=== PATIENT | female | born 1960 | race African-American/Black ===

== ENCOUNTER → 2020-12-15 | Outpatient (CLI) | payer MEDICARE, MEDICAID ==
[~2020-12-15] MED LIST: ASPI-1497 MT; CARI250T MT; FERR325T23 MT; FOLI-43 MT; FURO20TA4 MT; HYDR-4009 MT; HYDR200T80 MT; LISI40TA13 MT; P20 MT; VERA240T32 MT
== END | disposition home or self-care (01) ==
LOC: RAD 11:34
PROVIDERS: ATTEND Internal Medicine Clinical Cardiac Electrophysiology
DX: I50.9 Heart failure, unspecified (principal); I25.5 Ischemic cardiomyopathy
CPT/HCPCS: 71045

== ENCOUNTER 2023-04-14 04:44 | Inpatient (IN) | payer MEDICARE, MEDICAID ==
[~2023-04-14] VITALS: Ht 170.2 cm; Wt 98.7 kg
[~2023-04-14 04:44] MED LIST changes: -CARI250T MT; +CARI350T28 MT; +COR3 PO; +HYDR25TA78 PO; +POLY17PO3 MT; -VERA240T32 MT; +VERA240T94 MT
[2023-04-14 05:28] LABS: BASOPHILS % 0.7 % (0.0-2.0); DIFFERENTIAL COMMENT 0; EOSINOPHILS % 4.4 % (0.0-5.0); HEMATOCRIT. 31.9 % (36.0-48.0); HEMOGLOBIN. 10.1 g/dL (12.0-16.0); LYMPHOCYTES % 30.4 % (20.0-50.0); MEAN CORPUSCULAR HEMOGLOBIN 24.9 pg (28.0-32.0); MEAN CORPUSCULAR HGB CONC 31.6 g/dL (31.0-37.0); MEAN PLATELET VOLUME 9.8 fl (7.4-10.4); NEUTROPHILS % 54.5 % (40.0-76.0); PLATELET 130 x1000/uL (130-400); RED BLOOD CELL COUNT 4.04 mill/uL (4.2-5.4); RED CELL DISTRIBUTION WIDTH 16.7 % (11.6-14.6); WHITE BLOOD COUNT 4.4 x1000/uL (4.5-11.0)
[2023-04-14 05:49] LABS: ALANINE AMINOTRANSFERASE < 7 IU/L (10-49); ALBUMIN 4.6 g/dL (3.2-4.8); ASPARTATE AMINOTRANSFERASE 15 IU/L (<34); BILIRUBIN TOTAL 0.7 mg/dL (0.1-1.0); CALCIUM 9.8 mg/dL (8.7-10.4); CARBON DIOXIDE 21 mEq/L (21-32); CHLORIDE 111 mEq/L (98-107); CREATININE 2.4 mg/dL (0.6-1.0); GLUCOSE 100 mg/dL (70-105); POTASSIUM 3.9 mEq/L (3.5-5.1); PROTEIN TOTAL 7.7 g/dL (6.0-8.3); SODIUM 139 mEq/L (136-145); UREA NITROGEN BLOOD 34 mg/dL (9-23)
[2023-04-14 06:02] LABS: CLARITY URINE TURBID (CLEAR); COLOR URINE YELLOW (YELLOW); GLUCOSE URINE NEGATIVE (NEGATIVE); KETONES URINE NEGATIVE (NEGATIVE); LEUKOCYTE ESTERASE URINE 2+ (NEGATIVE); NITRITE URINE POSITIVE (NEGATIVE); OCCULT BLOOD URINE TRACE (NEGATIVE); PH URINE 5.5 (4.5-8.0); PROTEIN URINE 2+ (NEGATIVE); SPECIFIC GRAVITY URINE 1.013 (1.005-1.030); UROBILINOGEN URINE 0.2 E.U./dL (0.2-1.0)
[2023-04-14 06:02] LABS: TROPONIN I HIGH SENSITIVITY 57 ng/L (3.0-34)
[2023-04-14 08:04] LABS: WBC URINE 15-25 /hpf (0-2)
[2023-04-14 08:05] LABS: BACTERIA URINE 4+; RBC URINE 0-2 /hpf (0-2)
[2023-04-14] MEDS: SODIUM CHLORIDE 0.9% 1,000 ML IV ONE (08:52)
[2023-04-14] MEDS: METOCLOPRAMIDE HCL 10MG/2ML VIAL IV ONE (09:05)
[2023-04-14] MEDS: KETOROLAC 30MG/ML VIAL IV ONE (09:05)
[2023-04-14] MEDS: MORPHINE SULFATE 4 MG/ML CPJ (NOT FOR IM USE) IV STA (09:05)
[2023-04-14] MEDS: MORPHINE SULFATE 4 MG/ML CPJ (NOT FOR IM USE) IV ONE (09:05)
[2023-04-14 13:03] LABS: TROPONIN I HIGH SENSITIVITY 55 ng/L (3.0-34)
[2023-04-14] MEDS ORDERED: IPRATROPIUM/ALBUTEROL 0.5-3(2.5)MG/3ML NEB HHN PRN (13:45)
[2023-04-14] MEDS ORDERED: MAGNESIUM/ALUMINUM HYDROXIDE/SIMETHICONE 30ML UDC PO PRN (13:45)
[2023-04-14] MEDS ORDERED: GUAIFENESIN 200MG/10ML SUGAR FREE UDC PO PRN (13:45)
[2023-04-14] MEDS ORDERED: ONDANSETRON HCL 4MG/2ML INJ IV PRN (13:45)
[2023-04-14] MEDS ORDERED: ACETAMINOPHEN 325MG TABLET PO PRN ×2 (13:45)
[2023-04-14] MEDS ORDERED: DOCUSATE SODIUM 100MG CAPSULE PO PRN (13:45)
[2023-04-14] MEDS ORDERED: CARISOPRODOL 350 MG TABLET PO PRN (14:45)
[2023-04-14] MEDS: ENOXAPARIN 40MG/0.4ML SYR SUBCUT SCH (14:55)
[2023-04-14] MEDS: SODIUM CHLORIDE 0.9% 1,000 ML IV SCH (14:55)
[2023-04-14] MEDS ORDERED: NALOXONE HCL 0.4MG/ML VIAL IV PRN (15:00)
[2023-04-14] MEDS: CEFTRIAXONE 1GM/50ML 50 ML IV SCH (15:00)
[2023-04-14] MEDS: CLONIDINE 0.1MG TABLET PO PRN (15:28)
[2023-04-14] MEDS: HYDROXYCHLOROQUINE SULFATE 200MG TABLET PO SCH (17:00)
[2023-04-14 18:38] VITALS: BP 157/59; PULSE 69; RESP 20; TEMP 98
[2023-04-14 20:00] VITALS: BP 147/54; PULSE 60; RESP 18; TEMP 97.8
[2023-04-14] MEDS: ATORVASTATIN CALCIUM 20MG TABLET PO SCH (21:14)
[2023-04-14] MEDS: HYDRALAZINE HCL 25MG TABLET PO SCH (21:14)
[2023-04-14] MEDS: CARVEDILOL 3.125 MG TABLET PO SCH (21:15)
[2023-04-14] MEDS: HYDROCODONE/ACETAMINOPHEN 10/325MG TABLET PO PRN (21:23)
[2023-04-15] VITALS: BP 146/59; PULSE 60; RESP 18; TEMP 97
[2023-04-15] MEDS: METHYLPREDNISOLONE SOD SUCC 40MG VIAL IV SCH (01:00)
[2023-04-15 04:00] VITALS: BP 147/65; PULSE 60; RESP 20; TEMP 97
[2023-04-15] MEDS: NITROGLYCERIN OINT 1GM/INCH UDPKT TD SCH (06:00)
[2023-04-15 06:13] LABS: BASOPHILS % 0.7 % (0.0-2.0); DIFFERENTIAL COMMENT 0; EOSINOPHILS % 6.9 % (0.0-5.0); HEMATOCRIT. 28.2 % (36.0-48.0); HEMOGLOBIN. 9.1 g/dL (12.0-16.0); LYMPHOCYTES % 23.4 % (20.0-50.0); MEAN CORPUSCULAR HEMOGLOBIN 25.3 pg (28.0-32.0); MEAN CORPUSCULAR HGB CONC 32.2 g/dL (31.0-37.0); MEAN CORPUSCULAR VOLUME 78.5 fL (81.0-99.0); MONOCYTES % 12.2 % (2.0-8.0); NEUTROPHILS % 56.8 % (40.0-76.0); PLATELET 98 x1000/uL (130-400); RED CELL DISTRIBUTION WIDTH 16.6 % (11.6-14.6); WHITE BLOOD COUNT 3.1 x1000/uL (4.5-11.0)
[2023-04-15 06:33] LABS: ALANINE AMINOTRANSFERASE < 7 IU/L (10-49); ALBUMIN 3.7 g/dL (3.2-4.8); ASPARTATE AMINOTRANSFERASE 15 IU/L (<34); BILIRUBIN TOTAL 0.6 mg/dL (0.1-1.0); CALCIUM 9.2 mg/dL (8.7-10.4); CARBON DIOXIDE 23 mEq/L (21-32); CHLORIDE 112 mEq/L (98-107); CHOLESTEROL 122 mg/dL (<200); CREATININE 2.5 mg/dL (0.6-1.0); GLUCOSE 84 mg/dL (70-105); HDL CHOLESTEROL 39 mg/dL (>65); LDL CHOLESTEROL 64 mg/dL (5-100); POTASSIUM 4.6 mEq/L (3.5-5.1); PROTEIN TOTAL 6.2 g/dL (6.0-8.3); SODIUM 141 mEq/L (136-145); T4 FREE 1.22 ng/dL (0.89-1.76); THYROID STIMULATING HORMONE 2.22 uIU/mL (0.55-4.78); TRIGLYCERIDE 68 mg/dL (0-150); UREA NITROGEN BLOOD 36 mg/dL (9-23)
[2023-04-15 06:40] LABS: IRON 50 ug/dL (50-170); PHOSPHORUS 3.5 mg/dL (2.5-4.9); TOTAL IRON BINDING CAPACITY 215 ug/dl (250-425)
[2023-04-15 07:52] LABS: TROPONIN I HIGH SENSITIVITY 51 ng/L (3.0-34)
[2023-04-15 08:00] VITALS: BP 114/60; PULSE 59; RESP 20; TEMP 97
[2023-04-15] MEDS ORDERED: PREDNISONE 20MG TABLET PO SCH (09:00)
[2023-04-15] MEDS ORDERED: VERAPAMIL HCL 120MG TABLET PO SCH (09:00)
[2023-04-15] MEDS: METHOTREXATE SODIUM 2 . 5MG TABLET PO SCH ×3 (09:00→23:09)
[2023-04-15] MEDS: PREGABALIN 75MG CAPSULE PO SCH (10:07)
[2023-04-15] MEDS: FOLIC ACID 1MG TABLET PO SCH (10:08)
[2023-04-15] MEDS: FUROSEMIDE 20MG TABLET PO SCH (10:09)
[2023-04-15] MEDS: ASPIRIN 81MG EC TABLET PO SCH (10:09)
[2023-04-15] MEDS: BUPROPION HCL 150MG SR TABLET PO SCH (10:09)
[2023-04-15 12:00] VITALS: BP 116/76; PULSE 62; RESP 20; TEMP 97.2
[2023-04-15 12:47] LABS: CREATINE KINASE 31 IU/L (34-145)
[2023-04-15 16:00] VITALS: BP 152/62; PULSE 60; RESP 20; TEMP 97.6
[2023-04-15] MEDS: METHYLPREDNISOLONE SOD SUCC 40MG/ML (ACT-O-VIAL) ONE (16:12)
[2023-04-15 20:00] VITALS: BP 127/59; PULSE 68; RESP 20; TEMP 97
[2023-04-15] MEDS: FAMOTIDINE 20MG/2ML VIAL IV SCH (20:58)
[2023-04-16] MEDS: METHYLPREDNISOLONE SOD SUCC 40MG/ML (ACT-O-VIAL) IV SCH ×3 (00:36→11:00)
[2023-04-16 04:00] VITALS: BP 125/65; PULSE 65; RESP 20; TEMP 97.6
[2023-04-16 07:17] LABS: HEMATOCRIT 28.4 % (36.0-48.0); HEMOGLOBIN 8.9 g/dL (12.0-16.0); MEAN CORPUSCULAR HEMOGLOBIN 24.7 pg (28.0-32.0); MEAN CORPUSCULAR HGB CONC 31.3 g/dL (31.0-37.0); MEAN CORPUSCULAR VOLUME 78.9 fL (81.0-99.0); PLATELET 108 x1000/uL (130-400); RED CELL DISTRIBUTION WIDTH 17.3 % (11.6-14.6); WHITE BLOOD COUNT 4.8 x1000/uL (4.5-11.0)
[2023-04-16 07:38] LABS: CALCIUM 8.9 mg/dL (8.7-10.4); CREATININE 2.4 mg/dL (0.6-1.0); POTASSIUM 5.2 mEq/L (3.5-5.1); URIC ACID 7.7 mg/dL (3.1-7.8)
[2023-04-16 08:00] VITALS: BP 132/70; PULSE 69; RESP 20; TEMP 97.7
[2023-04-16 08:54] LABS: ERYTHROCYTE SEDIMENTATION RATE 78 mm/hr (0-30)
[2023-04-16] MEDS: BUPROPION HCL 150MG SR TABLET PO SCH (09:00)
[2023-04-16 09:10] LABS: COMPLEMENT C3 103 mg/dL (82-167); COMPLEMENT C4 19 mg/dL (12-38)
[2023-04-16 10:07] LABS: ANTI-NUCLEAR ANTIBODIES DIRECT Positive (Negative)
[2023-04-16 10:15] VITALS: BP 132/70; PULSE 69; TEMP 97.7; O2SAT 98
[2023-04-16 12:00] VITALS: BP 157/81; PULSE 63; RESP 63; TEMP 97.5
[2023-04-16] MEDS ORDERED: SULFASALAZINE 500MG TABLET PO SCH (12:00)
[2023-04-17 06:32] LABS: G6PD RBC 3.56 x10E6/uL (3.77-5.28)
[2023-04-17 08:09] LABS: ANTI-JO 1 ABS <0.2 AI (0.0-0.9); RNP ANTIBODY > 8.0 AI (0.0-0.9); SMITH ANTIBODY 1.4 AI (0.0-0.9)
[2023-04-18 19:09] LABS: ANTI-MYELOPEROXIDASE AB < 0.2 units (0.0-0.9); ANTI-PROTEINASE 3 ABS < 0.2 units (0.0-0.9); GLOMERULAR BASEMENT MEMB AB < 0 units (0.0-0.9)
[2023-04-19 09:11] LABS: ALDOLASE 3.9 U/L (3.3-10.3); ANGIOTENSION CONVERTING ENZYME 76 U/L (14-82)
[2023-04-22 10:11] LABS: G6PD QUANTITATIVE 402 (127-427)
[2023-04-23 13:07] LABS: ATYPICAL P-ANCA <1:20 titer (Neg:<1:20); CYTOPLASMIC C-ANCA <1:20 titer (Neg:<1:20); PERINUCLEAR P-ANCA <1:20 titer (Neg:<1:20)
== END 2023-04-16 12:45 | disposition home health service (06) | DRG 545 ==
LOC: ER 04:44 → EDBEDREQ 09:00 → 5WST 09:52 → EDBEDREQ 09:53 → EDBEDREQTM 09:53 → 8WST 17:06
PROVIDERS: ADMIT Internal Medicine; ATTEND Internal Medicine
DX: M32.9 Systemic lupus erythematosus, unspecified (principal); I21.A1 Myocardial infarction type 2; I50.23 Acute on chronic systolic (congestive) heart failure; N17.9 Acute kidney failure, unspecified; N39.0 Urinary tract infection, site not specified; I16.9 Hypertensive crisis, unspecified; I13.0 Hypertensive heart and chronic kidney disease with heart failure and stage 1 through stage 4 chronic kidney disease, or unspecified chronic kidney disease; N18.4 Chronic kidney disease, stage 4 (severe); D61.818 Other pancytopenia; M79.7 Fibromyalgia; I25.10 Atherosclerotic heart disease of native coronary artery without angina pectoris; I34.0 Nonrheumatic mitral (valve) insufficiency; I27.21 Secondary pulmonary arterial hypertension; D50.9 Iron deficiency anemia, unspecified; I25.5 Ischemic cardiomyopathy; I73.00 Raynaud's syndrome without gangrene; T37.8X5A Adverse effect of other specified systemic anti-infectives and antiparasitics, initial encounter; Z95.810 Presence of automatic (implantable) cardiac defibrillator; Z95.5 Presence of coronary angioplasty implant and graft; Z90.710 Acquired absence of both cervix and uterus; Z88.0 Allergy status to penicillin; Z79.899 Other long term (current) drug therapy; Z79.82 Long term (current) use of aspirin; Y92.89 Other specified places as the place of occurrence of the external cause
CPT/HCPCS: 36415; 71045; 76770; 80048; 80053; 80061; 81003; 82085; 82164; 82550; 82728; 82955; 82977; 83036; 83516; 83520; 83540; 83550; 83605; 83735; 84100; 84145; 84439; 84443; 84484; 84550; 85025; 85027; 85041; 85651; 86038; 86160; 86225; 86235; 86256; 86332; 86431; 86880; 93005; 93306; 93970; 97161; 97166; 99285; J0696; J1650; J1885; J2270; J2765; J2920; J3490; J7030; J8610

== ENCOUNTER 2023-10-13 23:04 | Inpatient (IN) | payer MEDICARE, MEDICAID ==
[~2023-10-13] VITALS: Ht 170.2 cm; Wt 101.2 kg
[~2023-10-13 23:04] MED LIST changes: +AMLO2.5T45 PO; -FOLI-43 MT; +FOLI-43 PO; -FURO20TA4 MT; +FURO40TA5 PO; -HYDR-4009 MT; +HYDR-4009 PO; +HYDR200T35 PO; -HYDR200T80 MT; +LOSA-412 PO; -P20 MT; -POLY17PO3 MT; +PREG75CA PO; -VERA240T94 MT
[2023-10-13 23:35] LABS: BASOPHILS % 0.9 % (0.0-2.0); EOSINOPHILS % 6.6 % (0.0-5.0); LYMPHOCYTES % 28.5 % (20.0-50.0); MEAN CORPUSCULAR HEMOGLOBIN 28.4 pg (28.0-32.0); MEAN CORPUSCULAR HGB CONC 33.8 g/dL (31.0-37.0); MEAN PLATELET VOLUME 8.9 fl (7.4-10.4); MONOCYTES % 11.8 % (2.0-8.0); NEUTROPHILS % 52.2 % (40.0-76.0); PLATELET 155 x1000/uL (130-400); RED BLOOD CELL COUNT 2.15 mill/uL (4.2-5.4)
[2023-10-13 23:42] LABS: CHLORIDE 113 mEq/L (98-107); POTASSIUM 4.1 mEq/L (3.5-5.1); SODIUM 139 mEq/L (136-145)
[2023-10-13 23:43] LABS: CARBON DIOXIDE 19 mEq/L (21-32)
[2023-10-13 23:44] LABS: CALCIUM 9.7 mg/dL (8.7-10.4)
[2023-10-13 23:48] LABS: CREATININE 3.1 mg/dL (0.6-1.0); GLUCOSE 95 mg/dL (70-105); UREA NITROGEN BLOOD 33 mg/dL (9-23)
[2023-10-13 23:59] LABS: DIFFERENTIAL COMMENT 1; HEMOGLOBIN. 6.1 g/dL (12.0-16.0)
[2023-10-14 00:05] LABS: TROPONIN I HIGH SENSITIVITY 132 ng/L (3.0-34)
[2023-10-14] MEDS: MORPHINE SULFATE 4 MG/ML INJ (FOR IV/IM USE) IV ONE (01:21)
[2023-10-14] MEDS: ASPIRIN 81MG TABLET PO ONE (01:21)
[2023-10-14 01:55] LABS: TROPONIN I HIGH SENSITIVITY 136 ng/L (3.0-34)
[2023-10-14] MEDS ORDERED: ACETAMINOPHEN 325MG TABLET PO PRN (06:15)
[2023-10-14] MEDS ORDERED: MAGNESIUM/ALUMINUM HYDROXIDE/SIMETHICONE 30ML UDC PO PRN (06:15)
[2023-10-14] MEDS ORDERED: IPRATROPIUM/ALBUTEROL 0.5-3(2.5)MG/3ML NEB NEB PRN (06:15)
[2023-10-14] MEDS ORDERED: GUAIFENESIN 200MG/10ML SUGAR FREE UDC PO PRN (06:15)
[2023-10-14] MEDS ORDERED: DOCUSATE SODIUM 100MG CAPSULE PO PRN (06:15)
[2023-10-14 08:17] VITALS: BP 165/65; PULSE 76; RESP 20; TEMP 36.5848
[2023-10-14] MEDS: CARVEDILOL 3.125 MG TABLET PO SCH (09:00)
[2023-10-14] MEDS ORDERED: FAMOTIDINE 20MG TABLET PO SCH (09:00)
[2023-10-14] MEDS ORDERED: LIDOCAINE HCL 1% 10 MG/ML 10ML VIAL ONE (10:59)
[2023-10-14 11:57] VITALS: BP 125/57; PULSE 60; RESP 20; TEMP 36.33624; O2SAT 100
[2023-10-14 15:50] VITALS: BP 149/55; PULSE 67; RESP 18; TEMP 36.83628; O2SAT 96
[2023-10-14] MEDS: NITROGLYCERIN 0.4MG TABLET SL SL PRN (16:37)
[2023-10-14 16:40] LABS: CREATINE KINASE MB FRACTION 0.6 ng/mL (0.5-3.6)
[2023-10-14 20:00] VITALS: BP 146/116; PULSE 78; RESP 20; TEMP 36.22512; O2SAT 98
[2023-10-14] MEDS: HYDROXYCHLOROQUINE SULFATE 200MG TABLET PO SCH (20:43)
[2023-10-14] MEDS: CLONIDINE 0.1MG TABLET PO PRN (21:03)
[2023-10-14] MEDS: AZATHIOPRINE 50MG TABLET PO SCH (21:03)
[2023-10-14] MEDS: ACETAMINOPHEN 325MG TABLET PO PRN (21:30)
[2023-10-14] MEDS: ZOLPIDEM TARTRATE 5MG TABLET PO PRN (21:33)
[2023-10-15] VITALS (14 sets, daily range): BP systolic 104–175; BP diastolic 41–71; PULSE 59–73; RESP 18–20; TEMP 36.28068–36.6696; O2SAT 96–100
[2023-10-15 00:50] LABS: CREATINE KINASE MB FRACTION < 0.5 ng/mL (0.5-3.6)
[2023-10-15 00:56] LABS: CREATINE KINASE 39 IU/L (34-145)
[2023-10-15 01:08] LABS: TROPONIN I HIGH SENSITIVITY 116 ng/L (3.0-34)
[2023-10-15 10:14] LABS: CHLORIDE 115 mEq/L (98-107); POTASSIUM 4.5 mEq/L (3.5-5.1); SODIUM 141 mEq/L (136-145)
[2023-10-15 10:15] LABS: CALCIUM 9.4 mg/dL (8.7-10.4); CARBON DIOXIDE 20 mEq/L (21-32)
[2023-10-15 10:16] LABS: BASOPHILS % 1.1 % (0.0-2.0); DIFFERENTIAL COMMENT 0; EOSINOPHILS % 5.7 % (0.0-5.0); LYMPHOCYTES % 27.3 % (20.0-50.0); MEAN CORPUSCULAR HEMOGLOBIN 27.9 pg (28.0-32.0); MEAN CORPUSCULAR HGB CONC 33.9 g/dL (31.0-37.0); MEAN CORPUSCULAR VOLUME 82.2 fL (81.0-99.0); MEAN PLATELET VOLUME 9.2 fl (7.4-10.4); MONOCYTES % 8.2 % (2.0-8.0); NEUTROPHILS % 57.7 % (40.0-76.0); PLATELET 129 x1000/uL (130-400); RED BLOOD CELL COUNT 2.43 mill/uL (4.2-5.4); RED CELL DISTRIBUTION WIDTH 16.4 % (11.6-14.6); WHITE BLOOD COUNT 4.3 x1000/uL (4.5-11.0)
[2023-10-15 10:20] LABS: CREATININE 2.8 mg/dL (0.6-1.0); GLUCOSE 91 mg/dL (70-105)
[2023-10-15 10:22] LABS: ALANINE AMINOTRANSFERASE < 7 IU/L (10-49); ALBUMIN 3.6 g/dL (3.2-4.8); ASPARTATE AMINOTRANSFERASE 11 IU/L (<34); PHOSPHORUS 3.5 mg/dL (2.5-4.9); UREA NITROGEN BLOOD 31 mg/dL (9-23)
[2023-10-15 10:23] LABS: BILIRUBIN TOTAL 1.3 mg/dL (0.1-1.0)
[2023-10-15 10:24] LABS: HEMATOCRIT. 19.9 % (36.0-48.0); HEMOGLOBIN. 6.8 g/dL (12.0-16.0)
[2023-10-16] VITALS (7 sets, daily range): BP systolic 132–158; BP diastolic 49–71; PULSE 58–60; RESP 18–20; TEMP 36.22512–36.44736; O2SAT 98–100
[2023-10-16 01:12] LABS: HEMATOCRIT 24.8 % (36.0-48.0); HEMOGLOBIN 8.3 g/dL (12.0-16.0)
[2023-10-16] MEDS: ONDANSETRON HCL 4MG/2ML INJ IV PRN (01:25)
[2023-10-16 07:36] LABS: CALCIUM 9.5 mg/dL (8.7-10.4); POTASSIUM 4.5 mEq/L (3.5-5.1)
[2023-10-16 07:42] LABS: CREATININE 2.8 mg/dL (0.6-1.0)
[2023-10-16 08:01] LABS: BASOPHILS % 0.6 % (0.0-2.0); EOSINOPHILS % 7.9 % (0.0-5.0); HEMATOCRIT. 24.8 % (36.0-48.0); HEMOGLOBIN. 8.3 g/dL (12.0-16.0); LYMPHOCYTES % 28.3 % (20.0-50.0); MEAN CORPUSCULAR HEMOGLOBIN 28.4 pg (28.0-32.0); MEAN CORPUSCULAR HGB CONC 33.3 g/dL (31.0-37.0); MEAN CORPUSCULAR VOLUME 85.1 fL (81.0-99.0); MEAN PLATELET VOLUME 9.6 fl (7.4-10.4); MONOCYTES % 11.7 % (2.0-8.0); NEUTROPHILS % 51.5 % (40.0-76.0); PLATELET 118 x1000/uL (130-400); RED BLOOD CELL COUNT 2.92 mill/uL (4.2-5.4); RED CELL DISTRIBUTION WIDTH 17.5 % (11.6-14.6); WHITE BLOOD COUNT 3.2 x1000/uL (4.5-11.0)
[2023-10-16] MEDS: DULOXETINE HCL 30MG DR CAPSULE PO SCH (15:00)
[2023-10-16] MEDS ORDERED: HYDROCODONE/ACETAMINOPHEN 5/325MG TABLET PO PRN (15:00)
[2023-10-16] MEDS: FOLIC ACID 1MG TABLET PO SCH (15:00)
[2023-10-16] MEDS ORDERED: NALOXONE HCL 0.4MG/ML VIAL IV PRN (15:15)
[2023-10-16] MEDS: HYDROCODONE/ACETAMINOPHEN 5/325MG TABLET PO NR (17:38)
[2023-10-16] MEDS: FERROUS SULFATE 325MG TABLET PO SCH (18:10)
[2023-10-16] MEDS ORDERED: AMLODIPINE 5MG TABLET PO SCH (21:00)
[2023-10-16] MEDS ORDERED: CARVEDILOL 12.5MG TABLET PO SCH (21:00)
== END 2023-10-16 19:00 | disposition home or self-care (01) | DRG 811 ==
LOC: ER 23:51 → 7WST 10-14 03:59
PROVIDERS: ADMIT Internal Medicine; ATTEND Internal Medicine
PROC: 02HV33Z Insertion of Infusion Device into Superior Vena Cava, Percutaneous Approach (ICD-10-PCS; principal; 2023-10-14)
PROC: B548ZZA Ultrasonography of Superior Vena Cava, Guidance (ICD-10-PCS; 2023-10-14)
PROC: B5181ZA Fluoroscopy of Superior Vena Cava using Low Osmolar Contrast, Guidance (ICD-10-PCS; 2023-10-14)
PROC: 30233N1 Transfusion of Nonautologous Red Blood Cells into Peripheral Vein, Percutaneous Approach (ICD-10-PCS; 2023-10-14)
DX: D64.9 Anemia, unspecified (principal); N17.0 Acute kidney failure with tubular necrosis; I42.9 Cardiomyopathy, unspecified; M32.9 Systemic lupus erythematosus, unspecified; G47.33 Obstructive sleep apnea (adult) (pediatric); I12.9 Hypertensive chronic kidney disease with stage 1 through stage 4 chronic kidney disease, or unspecified chronic kidney disease; I25.10 Atherosclerotic heart disease of native coronary artery without angina pectoris; R79.89 Other specified abnormal findings of blood chemistry; I49.5 Sick sinus syndrome; N18.9 Chronic kidney disease, unspecified; Z87.440 Personal history of urinary (tract) infections; Z95.0 Presence of cardiac pacemaker; Z95.5 Presence of coronary angioplasty implant and graft; Z88.8 Allergy status to other drugs, medicaments and biological substances; Z88.0 Allergy status to penicillin; Z68.34 Body mass index [BMI] 34.0-34.9, adult
CPT/HCPCS: 36415; 36573; 71045; 80048; 80053; 82550; 82553; 83735; 83880; 84100; 84484; 85014; 85018; 85025; 85651; 86850; 86870; 86900; 86920; 93005; 93306; 93970; 99285; C1725; J2270; J2405; J3490; J7500; P9016

== ENCOUNTER 2023-11-28 16:44 | Emergency (ER) | payer MEDICARE, MEDICAID ==
[~2023-11-28] VITALS: Ht 170.2 cm; Wt 99.8 kg
[~2023-11-28 16:44] MED LIST changes: -ASPI-1497 MT; +P20 PO
[2023-11-28 16:45] VITALS: BP 187/85; PULSE 81; RESP 16; TEMP 98.3; O2SAT 100
[2023-11-28 17:22] LABS: BASOPHILS % 0.3 % (0.0-2.0); EOSINOPHILS % 2.3 % (0.0-5.0); HEMOGLOBIN. 7.1 g/dL (12.0-16.0); LYMPHOCYTES % 20.9 % (20.0-50.0); MEAN CORPUSCULAR HEMOGLOBIN 29.9 pg (28.0-32.0); MEAN CORPUSCULAR HGB CONC 33.9 g/dL (31.0-37.0); MEAN CORPUSCULAR VOLUME 88.2 fL (81.0-99.0); MEAN PLATELET VOLUME 8.8 fl (7.4-10.4); MONOCYTES % 10.3 % (2.0-8.0); NEUTROPHILS % 66.2 % (40.0-76.0); PLATELET 170 x1000/uL (130-400); RED BLOOD CELL COUNT 2.38 mill/uL (4.2-5.4); RED CELL DISTRIBUTION WIDTH 16.2 % (11.6-14.6); WHITE BLOOD COUNT 6.9 x1000/uL (4.5-11.0)
[2023-11-28 17:32] LABS: DIFFERENTIAL COMMENT 1
[2023-11-28 17:34] LABS: POTASSIUM 3.6 mEq/L (3.5-5.1)
[2023-11-28 17:35] LABS: CALCIUM 9.8 mg/dL (8.7-10.4)
[2023-11-28 17:40] LABS: CREATININE 2.9 mg/dL (0.6-1.0)
== END 2023-11-28 18:59 | disposition left against medical advice (07) ==
LOC: ER 16:44
DX: D58.2 Other hemoglobinopathies (principal); Z53.21 Procedure and treatment not carried out due to patient leaving prior to being seen by health care provider
CPT/HCPCS: 36415; 80048; 85025

== ENCOUNTER 2023-12-04 15:13 | Inpatient (IN) | payer MEDICARE, MEDICAID ==
[~2023-12-04] VITALS: Ht 170.2 cm; Wt 94.9 kg
[2023-12-04 15:21] VITALS: O2SAT 98
[2023-12-04 16:19] LABS: MEAN CORPUSCULAR HEMOGLOBIN 31.7 pg (28.0-32.0); MEAN CORPUSCULAR HGB CONC 34.1 g/dL (31.0-37.0); MEAN CORPUSCULAR VOLUME 93.1 fL (81.0-99.0); MEAN PLATELET VOLUME 9.2 fl (7.4-10.4); PLATELET 153 x1000/uL (130-400); RED BLOOD CELL COUNT 1.81 mill/uL (4.2-5.4); WHITE BLOOD COUNT 4.7 x1000/uL (4.5-11.0)
[2023-12-04 16:23] LABS: HEMOGLOBIN. 5.7 g/dL (12.0-16.0)
[2023-12-04 16:24] LABS: DIFFERENTIAL COMMENT 1; HEMATOCRIT. 16.8 % (36.0-48.0)
[2023-12-04 16:25] LABS: POTASSIUM 4.1 mEq/L (3.5-5.1)
[2023-12-04 16:27] LABS: CALCIUM 9.4 mg/dL (8.7-10.4)
[2023-12-04 16:31] LABS: CREATININE 2.9 mg/dL (0.6-1.0)
[2023-12-04] MEDS ORDERED: SODIUM CHLORIDE 0.9% 1,000 ML IV ONE (16:45)
[2023-12-04 17:02] LABS: ANISOCYTOSIS 1+; PLATELET ESTIMATE NORMAL
[2023-12-04 17:36] LABS: INR 0.9; PARTIAL THROMBOPLASTIN TIME 21.7 sec (23.4-31.0); PROTHROMBIN TIME 10.1 sec (9.6-11.0)
[2023-12-04 17:54] LABS: TROPONIN I HIGH SENSITIVITY 97 ng/L (3.0-34)
[2023-12-04] MEDS ORDERED: ONDANSETRON HCL 4MG/2ML INJ IV PRN (20:00)
[2023-12-04] MEDS ORDERED: GUAIFENESIN 200MG/10ML SUGAR FREE UDC PO PRN (20:00)
[2023-12-04] MEDS ORDERED: KETOROLAC 15MG/ML VIAL IV PRN (20:00)
[2023-12-04] MEDS ORDERED: MAGNESIUM/ALUMINUM HYDROXIDE/SIMETHICONE 30ML UDC PO PRN (20:00)
[2023-12-04] MEDS ORDERED: ACETAMINOPHEN 325MG TABLET PO PRN ×2 (20:00)
[2023-12-04] MEDS ORDERED: ENOXAPARIN 40MG/0.4ML SYR SUBCUT SCH (20:00)
[2023-12-04] MEDS ORDERED: DOCUSATE SODIUM 100MG CAPSULE PO PRN (20:00)
[2023-12-04] MEDS ORDERED: NITROGLYCERIN 0.4MG TABLET SL SL PRN (20:00)
[2023-12-04] MEDS ORDERED: IPRATROPIUM/ALBUTEROL 0.5-3(2.5)MG/3ML NEB NEB PRN (20:00)
[2023-12-04] MEDS ORDERED: AMLODIPINE 5MG TABLET PO NR (20:15)
[2023-12-04] MEDS ORDERED: ZOLPIDEM TARTRATE 5MG TABLET PO PRN (21:00)
[2023-12-04 22:18] LABS: T4 FREE 1.03 ng/dL (0.89-1.76); THYROID STIMULATING HORMONE 0.93 uIU/mL (0.55-4.78)
[2023-12-04 22:30] VITALS: BP 128/58; PULSE 89; RESP 20; TEMP 37.11408; O2SAT 100
[2023-12-04 23:15] LABS: VITAMIN B12 SERUM 2954 pg/mL (211-911)
[2023-12-04 23:30] VITALS: BP 128/53; PULSE 81; RESP 18; TEMP 36.14
[2023-12-05] VITALS (7 sets, daily range): BP systolic 132–162; BP diastolic 45–73; PULSE 67–79; RESP 18–20; TEMP 36.50292–37.28076; O2SAT 96–100
[2023-12-05] MEDS: CARVEDILOL 3.125 MG TABLET PO SCH (07:12)
[2023-12-05 07:22] LABS: CHLORIDE 107 mEq/L (98-107); POTASSIUM 4.2 mEq/L (3.5-5.1); SODIUM 139 mEq/L (136-145)
[2023-12-05 07:24] LABS: CALCIUM 9.6 mg/dL (8.7-10.4); CARBON DIOXIDE 25 mEq/L (21-32)
[2023-12-05 07:29] LABS: CREATININE 2.9 mg/dL (0.6-1.0); GLUCOSE 85 mg/dL (70-105); UREA NITROGEN BLOOD 28 mg/dL (9-23)
[2023-12-05 07:30] LABS: ALANINE AMINOTRANSFERASE < 7 IU/L (10-49)
[2023-12-05 07:31] LABS: ALBUMIN 3.3 g/dL (3.2-4.8); ASPARTATE AMINOTRANSFERASE 14 IU/L (<34); PHOSPHORUS 2.9 mg/dL (2.5-4.9)
[2023-12-05 07:32] LABS: BILIRUBIN TOTAL 1.8 mg/dL (0.1-1.0); PROTEIN TOTAL 5.7 g/dL (6.0-8.3)
[2023-12-05 08:06] LABS: BASOPHILS % 0.8 % (0.0-2.0); DIFFERENTIAL COMMENT 0; EOSINOPHILS % 3.8 % (0.0-5.0); LYMPHOCYTES % 33.9 % (20.0-50.0); MEAN CORPUSCULAR HEMOGLOBIN 32.8 pg (28.0-32.0); MEAN CORPUSCULAR HGB CONC 32.9 g/dL (31.0-37.0); MEAN CORPUSCULAR VOLUME 99.6 fL (81.0-99.0); MEAN PLATELET VOLUME 10.5 fl (7.4-10.4); MONOCYTES % 9.5 % (2.0-8.0); PLATELET 139 x1000/uL (130-400); RED BLOOD CELL COUNT 1.56 mill/uL (4.2-5.4); WHITE BLOOD COUNT 4.3 x1000/uL (4.5-11.0)
[2023-12-05 08:32] LABS: HEMATOCRIT. 15.5 % (36.0-48.0); HEMOGLOBIN. 5.1 g/dL (12.0-16.0)
[2023-12-05] MEDS ORDERED: PREDNISONE 20MG TABLET PO SCH (09:00)
[2023-12-05] MEDS ORDERED: LIDOCAINE HCL 1% 10 MG/ML 10ML VIAL ONE (11:26)
[2023-12-05 12:57] LABS: BASOPHILS % 0.5 % (0.0-2.0); DIFFERENTIAL COMMENT 0; EOSINOPHILS % 4.3 % (0.0-5.0); LYMPHOCYTES % 35.2 % (20.0-50.0); MEAN CORPUSCULAR HGB CONC 32.9 g/dL (31.0-37.0); MEAN CORPUSCULAR VOLUME 94.3 fL (81.0-99.0); MEAN PLATELET VOLUME 8.4 fl (7.4-10.4); MONOCYTES % 9.8 % (2.0-8.0); NEUTROPHILS % 50.2 % (40.0-76.0); PLATELET 133 x1000/uL (130-400); RED BLOOD CELL COUNT 1.58 mill/uL (4.2-5.4); RED CELL DISTRIBUTION WIDTH 17.2 % (11.6-14.6)
[2023-12-05 13:35] LABS: HEMATOCRIT. 14.9 % (36.0-48.0); HEMOGLOBIN. 4.9 g/dL (12.0-16.0)
[2023-12-05] MEDS: HYDROXYCHLOROQUINE SULFATE 200MG TABLET PO SCH (21:00)
[2023-12-05] MEDS: PANTOPRAZOLE SODIUM 40 MG/VIAL IV SCH (21:00)
[2023-12-06] VITALS (7 sets, daily range): BP systolic 139–161; BP diastolic 42–84; PULSE 67–73; RESP 18–20; TEMP 36.3918–36.72516; O2SAT 99–100
[2023-12-06] MEDS: CLONIDINE 0.1MG TABLET PO PRN (09:01)
[2023-12-06] MEDS: AMLODIPINE 10MG TABLET PO SCH (09:02)
[2023-12-06 11:10] LABS: BASOPHILS % 0.6 % (0.0-2.0); EOSINOPHILS % 3.6 % (0.0-5.0); HEMATOCRIT. 23.2 % (36.0-48.0); HEMOGLOBIN. 7.9 g/dL (12.0-16.0); LYMPHOCYTES % 27.5 % (20.0-50.0); MEAN CORPUSCULAR HEMOGLOBIN 30.5 pg (28.0-32.0); MEAN CORPUSCULAR HGB CONC 33.8 g/dL (31.0-37.0); MEAN CORPUSCULAR VOLUME 90.1 fL (81.0-99.0); MEAN PLATELET VOLUME 9.2 fl (7.4-10.4); MONOCYTES % 8.8 % (2.0-8.0); NEUTROPHILS % 59.5 % (40.0-76.0); PLATELET 118 x1000/uL (130-400); RED BLOOD CELL COUNT 2.58 mill/uL (4.2-5.4); RED CELL DISTRIBUTION WIDTH 15.7 % (11.6-14.6); WHITE BLOOD COUNT 3.9 x1000/uL (4.5-11.0)
== END 2023-12-06 16:10 | disposition left against medical advice (07) | DRG 811 ==
LOC: ER 15:13 → 5WST 19:05 → EDBEDREQTM 19:47 → EDBEDREQ 19:47 → 7EST 22:53
PROVIDERS: ADMIT Internal Medicine; ATTEND Internal Medicine
PROC: 30233N1 Transfusion of Nonautologous Red Blood Cells into Peripheral Vein, Percutaneous Approach (ICD-10-PCS; principal; 2023-12-05)
PROC: 02HV33Z Insertion of Infusion Device into Superior Vena Cava, Percutaneous Approach (ICD-10-PCS; 2023-12-05)
PROC: B548ZZA Ultrasonography of Superior Vena Cava, Guidance (ICD-10-PCS; 2023-12-05)
DX: D50.9 Iron deficiency anemia, unspecified (principal); I21.A1 Myocardial infarction type 2; N17.0 Acute kidney failure with tubular necrosis; J96.01 Acute respiratory failure with hypoxia; E66.9 Obesity, unspecified; I25.10 Atherosclerotic heart disease of native coronary artery without angina pectoris; I13.10 Hypertensive heart and chronic kidney disease without heart failure, with stage 1 through stage 4 chronic kidney disease, or unspecified chronic kidney disease; N18.9 Chronic kidney disease, unspecified; Z53.20 Procedure and treatment not carried out because of patient's decision for unspecified reasons; Z68.32 Body mass index [BMI] 32.0-32.9, adult; Z91.199 Patient's noncompliance with other medical treatment and regimen due to unspecified reason; Z79.899 Other long term (current) drug therapy
CPT/HCPCS: 36415; 36573; 71045; 80048; 80053; 82607; 83735; 83880; 84100; 84439; 84443; 84484; 85025; 86850; 86870; 86880; 86900; 86920; 93005; 99285; C1725; J2470; J3490; J7030; J7512; P9016